=== PATIENT | female | born 1970 | race Caucasian/White ===

== ENCOUNTER → 2018-01-19 13:42 | Outpatient (CLI) | payer BC ==
[2015-03-02 06:39] VITALS: BMI 24.4
[~2018-01-19 13:42] MED LIST: LANTUS SOL100 UNIT/1 SC; NOVOLOG100 U/M1 SC
== END | disposition home or self-care (01) ==
LOC: D.LABREF 13:42
DX: J32.0 Chronic maxillary sinusitis (principal)

== ENCOUNTER → 2020-10-29 07:31 | Outpatient (CLI) | payer BC ==
[2015-03-02 06:39] VITALS: BMI 24.4
[2020-10-29 09:02] LABS: CREATININE - SERUM 1.3 mg/dL (0.6-1.3)
== END | disposition home or self-care (01) ==
LOC: D.CT 10-26 13:30
PROVIDERS: ATTEND Family Medicine
DX: I15.0 Renovascular hypertension (principal)